=== PATIENT | male | born 1965 | race Caucasian/White ===

== ENCOUNTER 2019-05-10 14:43 | Emergency (ER) | payer SELFPAY ==
[~2019-05-10] VITALS: Ht 172.7 cm; Wt 100.0 kg
[~2019-05-10 14:43] MED LIST: NOCURR
[2019-05-10] MEDS ORDERED: CLINDAMYCIN HCL 150 MG CAPSULE PO ONE (17:15)
[2019-05-10 17:16] VITALS: BP 140/81
== END 2019-05-10 18:11 | disposition home or self-care (01) ==
LOC: EMS 14:44
DX: K04.7 Periapical abscess without sinus (principal); F15.10 Other stimulant abuse, uncomplicated

== ENCOUNTER 2022-02-06 18:12 | Emergency (ER) | payer SELFPAY ==
[~2022-02-06] VITALS: Ht 172.7 cm; Wt 125.0 kg
[2022-02-06 18:15] VITALS: BP 176/99
[2022-02-06] MEDS: FLUORESCEIN SODIUM 1 MG STRIP OU ONE ×2 (19:47→21:00)
[2022-02-06] MEDS: PROPARACAINE HCL 0.5% 15 ML OPHTHALMIC SOLUTION OU ONE ×2 (19:47→21:00)
[2022-02-06] MEDS ORDERED: ERYTHROMYCIN 0.5% 3.5 GM TUBE OPHTHALMIC OINTMENT OU ONE (21:30)
== END 2022-02-06 21:50 | disposition home or self-care (01) ==
LOC: EMS 18:12
DX: H57.12 Ocular pain, left eye (principal); H57.11 Ocular pain, right eye; F15.90 Other stimulant use, unspecified, uncomplicated
CPT/HCPCS: 99283; 99284